=== PATIENT | female | born 1950 | race Caucasian/White ===

== ENCOUNTER 2021-12-27 18:43 | Inpatient (IN) | payer MEDICARE ==
[2021-12-27 19:11] LABS: #Eosinphils 0.1 thou/uL (0.0-0.7); #Lymphocytes 1.7 thou/uL (1.20-3.40); #Monocytes 0.8 thou/uL (0.11-0.59); #Neutrophils 7.2 thou/uL (1.40-6.50); %Basophils 0.5 % (0.0-1.0); %Eosinophils 0.8 % (0.0-10.0); %Lymphocytes 17.4 % (21.0-51.0); %Neutrophils 73.2 % (42.0-75.0); Hemoglobin 13.8 g/dL (12.0-16.0); Mean Corpuscular HGB CONC 32.8 g/dL (32.0-36.0); Mean Corpuscular Hemoglobin 33.5 pg (27.0-31.0); Mean Platelet Volume 6.5 fL (7.4-10.4); Platelet Count 258 thou/uL (130-400); RBC Distribution Width 11.7 % (11.5-14.5); Red Blood Cell (RBC) Count 4.13 mill/uL (4.20-5.40); White Blood Cell (WBC) Count 9.9 thou/uL (4.8-10.8)
[2021-12-27 19:18] LABS: INR-International Normal Ratio 0.9; PTT 24.8 sec (22.9-36.1); Prothrombin Time 12.6 sec (12.0-14.7)
[2021-12-27 19:34] LABS: ALT (SGPT) 19 U/L (8-55); AST (SGOT) 28 U/L (5-34); Albumin 4.4 g/dL (3.4-4.8); Alkaline Phosphatase 72 U/L (40-110); Anion Gap 14 mmol/L (10-20); BUN (Urea Nitrogen) 16 mg/dL (9.8-20.1); Bilirubin, Total 0.5 mg/dL (0.2-1.2); Calc. Creatinine Clearance 0 mL/min (70-130); Calcium 9.3 mg/dL (7.8-10.44); Carbon Dioxide 24 mmol/L (23-31); Chloride 100 mmol/L (98-107); Globulin 2.9 g/dL (2.4-3.5); Glucose 99 mg/dL (80-115); Potassium 3.8 mmol/L (3.5-5.1); Protein, Total 7.3 g/dL (5.8-8.1); Sodium 134 mmol/L (136-145)
[2021-12-27] MEDS ORDERED: Cyclobenzaprine 10 MG TAB PO PRN (19:39)
[2021-12-27] MEDS ORDERED: traMADol HCl 50 MG TAB PO PRN (19:39)
[2021-12-27] MEDS ORDERED: Ondansetron ODT 4 MG TAB PO PRN (19:45)
[2021-12-27] MEDS ORDERED: hydrALAZINE 20 MG/ML VIAL SLOW IVP PRN (19:45)
[2021-12-27] MEDS ORDERED: Ketorolac Tromethamine 30 MG/ML VIAL IVP SCH (19:45)
[2021-12-27] MEDS ORDERED: Morphine 4 MG/ML VIAL SLOW IVP PRN (19:47)
[2021-12-27] MEDS ORDERED: Acetaminophen 500 MG TAB PO SCH (20:00)
[2021-12-27] MEDS ORDERED: Ketorolac Tromethamine 30 MG/ML VIAL ONE (20:46)
[2021-12-27] MEDS ORDERED: Melatonin 3 MG TAB PO PRN (20:54)
[2021-12-27] MEDS ORDERED: Famotidine/PF 20 mg/2ml Vial SLOW IVP SCH (21:00)
[2021-12-27] MEDS ORDERED: clonazePAM 1 MG TAB PO SCH (21:00)
[2021-12-27] MEDS ORDERED: Morphine 4 MG/ML VIAL ONE (21:11)
[2021-12-27 22:03] VITALS: BMI 25.4
[2021-12-27] MEDS: Sodium Chloride 0.9% 1,000 ML IV SCH (22:22)
[2021-12-27] MEDS: Gabapentin 300 MG CAP PO SCH (22:34)
[2021-12-27] MEDS: Senokot S 8.6-50 MG TAB PO SCH (22:34)
[2021-12-27] MEDS: Cyclobenzaprine 10 MG TAB PO PRN (22:41)
[2021-12-27 23:43] LABS: SARS-CoV-2 NAA Rapid Test Not Detected (NotDetected)
[2021-12-27] MEDS: Ketorolac Tromethamine 30 MG/ML VIAL IVP SCH (23:43)
[2021-12-27] MEDS: Acetaminophen/Codeine 30-300mg Tablet PO SCH (23:43)
[2021-12-27] MEDS ORDERED: traMADol HCl 50 MG TAB PO SCH (23:59)
[2021-12-28] MEDS: Acetaminophen/Codeine 30-300mg Tablet PO SCH (05:19)
[2021-12-28] MEDS: Ketorolac Tromethamine 30 MG/ML VIAL IVP SCH ×4 (05:19→22:29)
[2021-12-28] MEDS: Sodium Chloride 0.9% 1,000 ML IV SCH (05:22)
[2021-12-28 06:27] LABS: #Lymphocytes 1.6 thou/uL (1.20-3.40); #Monocytes 0.7 thou/uL (0.11-0.59); #Neutrophils 5.7 thou/uL (1.40-6.50); %Basophils 0.6 % (0.0-1.0); %Eosinophils 0.4 % (0.0-10.0); %Lymphocytes 19.7 % (21.0-51.0); %Monocytes 8.5 % (0.0-10.0); %Neutrophils 70.8 % (42.0-75.0); Mean Corpuscular HGB CONC 32.9 g/dL (32.0-36.0); Mean Corpuscular Hemoglobin 34.1 pg (27.0-31.0); Mean Platelet Volume 6.6 fL (7.4-10.4); Platelet Count 228 thou/uL (130-400); RBC Distribution Width 11.8 % (11.5-14.5); Red Blood Cell (RBC) Count 3.51 mill/uL (4.20-5.40); White Blood Cell (WBC) Count 8.1 thou/uL (4.8-10.8)
[2021-12-28 06:53] LABS: Anion Gap 10 mmol/L (10-20); BUN (Urea Nitrogen) 11 mg/dL (9.8-20.1); Calc. Creatinine Clearance 85 mL/min (70-130); Calcium 8.2 mg/dL (7.8-10.44); Carbon Dioxide 26 mmol/L (23-31); Chloride 107 mmol/L (98-107); Glucose 98 mg/dL (80-115); Phosphorus 3.9 mg/dL (2.3-4.7); Potassium 3.6 mmol/L (3.5-5.1); Sodium 139 mmol/L (136-145)
[2021-12-28] MEDS ORDERED: traMADol HCl 50 MG TAB PO PRN (07:19)
[2021-12-28] MEDS ORDERED: Potassium Chloride 20 MEQ TAB PO SCH (07:30)
[2021-12-28] MEDS: Enoxaparin Sodium 40 MG/0.4 ML SYRINGE SC SCH (07:49)
[2021-12-28] MEDS: Senokot S 8.6-50 MG TAB PO SCH ×2 (07:49→21:12)
[2021-12-28] MEDS: Polyethylene Glycol 3350 17 GM Packet PO SCH (07:49)
[2021-12-28] MEDS: Gabapentin 300 MG CAP PO SCH ×3 (07:50→21:09)
[2021-12-28] MEDS: traMADol HCl 50 MG TAB PO PRN ×3 (07:51→21:11)
[2021-12-28] MEDS ORDERED: Lidocaine 1% (PF) 30 ML VIAL SC SCH (08:45)
[2021-12-28] MEDS: Loratadine 10 MG TAB PO SCH ×2 (12:20→18:32)
[2021-12-28] MEDS: Cyclobenzaprine 10 MG TAB PO PRN ×2 (12:23→22:28)
[2021-12-28] MEDS: Montelukast Sodium 10 mg Tablet PO SCH (21:10)
[2021-12-28] MEDS: Rosuvastatin 20 MG TAB PO SCH (21:10)
[2021-12-28] MEDS: clonazePAM 1 MG TAB PO SCH (21:11)
[2021-12-29] MEDS: traMADol HCl 50 MG TAB PO PRN ×2 (03:07→08:49)
[2021-12-29 05:29] LABS: #Eosinphils 0.2 thou/uL (0.0-0.7); #Lymphocytes 1.6 thou/uL (1.20-3.40); #Monocytes 0.5 thou/uL (0.11-0.59); #Neutrophils 4.1 thou/uL (1.40-6.50); %Basophils 0.7 % (0.0-1.0); %Eosinophils 3.2 % (0.0-10.0); %Monocytes 8.3 % (0.0-10.0); %Neutrophils 63.8 % (42.0-75.0); Hemoglobin 12.3 g/dL (12.0-16.0); Mean Corpuscular HGB CONC 32.5 g/dL (32.0-36.0); Mean Corpuscular Hemoglobin 35.4 pg (27.0-31.0); Mean Platelet Volume 6.8 fL (7.4-10.4); Platelet Count 210 thou/uL (130-400); RBC Distribution Width 11.8 % (11.5-14.5); Red Blood Cell (RBC) Count 3.47 mill/uL (4.20-5.40); White Blood Cell (WBC) Count 6.5 thou/uL (4.8-10.8)
[2021-12-29 06:49] LABS: Anion Gap 9 mmol/L (10-20); BUN (Urea Nitrogen) 11 mg/dL (9.8-20.1); Calc. Creatinine Clearance 76 mL/min (70-130); Calcium 8.3 mg/dL (7.8-10.44); Carbon Dioxide 26 mmol/L (23-31); Chloride 102 mmol/L (98-107); Glucose 83 mg/dL (80-115); Magnesium 2.1 mg/dL (1.6-2.6); Phosphorus 4.2 mg/dL (2.3-4.7); Potassium 3.9 mmol/L (3.5-5.1); Sodium 133 mmol/L (136-145)
[2021-12-29] MEDS: Enoxaparin Sodium 40 MG/0.4 ML SYRINGE SC SCH (08:44)
[2021-12-29] MEDS: Polyethylene Glycol 3350 17 GM Packet PO SCH (08:45)
[2021-12-29] MEDS: Cyclobenzaprine 10 MG TAB PO PRN (08:48)
[2021-12-29] MEDS: Escitalopram Oxalate 10 mg Tablet PO SCH (08:48)
[2021-12-29] MEDS: Gabapentin 300 MG CAP PO SCH ×3 (08:49→20:46)
[2021-12-29] MEDS: Loratadine 10 MG TAB PO SCH (08:49)
[2021-12-29] MEDS: Senokot S 8.6-50 MG TAB PO SCH ×2 (08:49→20:46)
[2021-12-29] MEDS: Ketorolac Tromethamine 30 MG/ML VIAL IVP SCH ×3 (12:29→23:54)
[2021-12-29] MEDS: Acetaminophen 500 MG TAB PO SCH ×3 (12:30→23:55)
[2021-12-29] MEDS: traMADol HCl 50 MG TAB PO SCH ×3 (12:32→23:55)
[2021-12-29] MEDS ORDERED: Ibuprofen 200 MG TAB PO SCH (14:00)
[2021-12-29] MEDS: clonazePAM 1 MG TAB PO SCH (20:46)
[2021-12-29] MEDS: Rosuvastatin 20 MG TAB PO SCH (20:46)
[2021-12-29] MEDS: Montelukast Sodium 10 mg Tablet PO SCH (20:46)
[2021-12-30] MEDS: traMADol HCl 50 MG TAB PO SCH ×3 (05:50→18:01)
[2021-12-30] MEDS: Acetaminophen 500 MG TAB PO SCH ×3 (05:50→18:00)
[2021-12-30] MEDS: Ketorolac Tromethamine 30 MG/ML VIAL IVP SCH ×3 (05:51→17:59)
[2021-12-30] MEDS: Enoxaparin Sodium 40 MG/0.4 ML SYRINGE SC SCH (08:56)
[2021-12-30] MEDS: Polyethylene Glycol 3350 17 GM Packet PO SCH (08:56)
[2021-12-30] MEDS: Escitalopram Oxalate 10 mg Tablet PO SCH (08:57)
[2021-12-30] MEDS: Gabapentin 300 MG CAP PO SCH ×3 (08:57→19:54)
[2021-12-30] MEDS: Loratadine 10 MG TAB PO SCH (08:57)
[2021-12-30] MEDS: Senokot S 8.6-50 MG TAB PO SCH ×2 (08:57→19:54)
[2021-12-30] MEDS: Cyclobenzaprine 10 MG TAB PO PRN (09:50)
[2021-12-30] MEDS: Montelukast Sodium 10 mg Tablet PO SCH (19:54)
[2021-12-30] MEDS: clonazePAM 1 MG TAB PO SCH (19:56)
[2021-12-30] MEDS: Rosuvastatin 20 MG TAB PO SCH (20:00)
[2021-12-30] MEDS ORDERED: Suvorexant [Belsomra] 20 MG Tablet PO SCH (21:00)
[2021-12-30] MEDS ORDERED: SUVOREXANT 20 MG PO SCH (21:00)
[2021-12-31] MEDS: Ketorolac Tromethamine 30 MG/ML VIAL IVP SCH ×2 (00:12→06:01)
[2021-12-31] MEDS: Acetaminophen 500 MG TAB PO SCH ×3 (00:13→12:07)
[2021-12-31] MEDS: traMADol HCl 50 MG TAB PO SCH ×3 (00:14→12:07)
[2021-12-31] MEDS: Gabapentin 300 MG CAP PO SCH ×2 (08:59→14:57)
[2021-12-31] MEDS: Senokot S 8.6-50 MG TAB PO SCH (09:00)
[2021-12-31] MEDS: Escitalopram Oxalate 10 mg Tablet PO SCH (09:00)
[2021-12-31] MEDS: Loratadine 10 MG TAB PO SCH (09:00)
[2021-12-31] MEDS: Enoxaparin Sodium 40 MG/0.4 ML SYRINGE SC SCH (09:01)
[2021-12-31] MEDS: Polyethylene Glycol 3350 17 GM Packet PO SCH (09:01)
[2021-12-31] MEDS: Cyclobenzaprine 10 MG TAB PO PRN (09:18)
[2021-12-31 11:55] VITALS: BP 120/79; TEMP 97.7
[2021-12-31] MEDS ORDERED: Ibuprofen 200 MG TAB PO SCH (14:00)
[2021-12-31] MEDS ORDERED: Ibuprofen 600 MG TAB PO SCH (14:00)
== END 2021-12-31 16:05 | disposition home or self-care (01) | DRG 200 ==
LOC: ERS 18:43 → SURG B 20:37
PROVIDERS: ADMIT Specialist; ATTEND Surgery
PROC: 0W9930Z Drainage of Right Pleural Cavity with Drainage Device, Percutaneous Approach (ICD-10-PCS; principal; 2021-12-28)
DX: S27.0XXA Traumatic pneumothorax, initial encounter (principal); S22.41XA Multiple fractures of ribs, right side, initial encounter for closed fracture; Z20.822 Contact with and (suspected) exposure to COVID-19; I10 Essential (primary) hypertension; F41.9 Anxiety disorder, unspecified; M19.90 Unspecified osteoarthritis, unspecified site; G47.00 Insomnia, unspecified; E78.5 Hyperlipidemia, unspecified; Y92.79 Other farm location as the place of occurrence of the external cause; V80.010A Animal-rider injured by fall from or being thrown from horse in noncollision accident, initial encounter; Y93.52 Activity, horseback riding; Z79.899 Other long term (current) drug therapy
CPT/HCPCS: 36415; 70450; 71045; 71260; 72125; 74177; 80048; 80053; 83735; 84100; 85025; 85610; 85730; 86850; 86900; 86901; 93005; 96374; 96375; G0390; J1650; J1885; J2001; J2270; J7050; S0028; U0002